=== PATIENT | male | born 1975 | race African-American/Black ===

== ENCOUNTER 2016-09-17 21:49 | Emergency (ER) | payer BC ==
[~2016-09-17] VITALS: Ht 190.5 cm; Wt 70.0 kg
[~2016-09-17 21:49] MED LIST: LAM25 PO; PHEN100C4 PO
[2016-09-17 22:12] VITALS: BP 121/68
[2016-09-17 22:49] LABS: BASOPHILS % 0.6 % (0.0-2.0); EOSINOPHILS % 1.6 % (0.0-5.0); HEMATOCRIT. 36.9 % (42.0-52.0); HEMOGLOBIN. 11.9 g/dL (14.0-18.0); LYMPHOCYTES % 28.9 % (20.0-50.0); MEAN CORPUSCULAR HEMOGLOBIN 29.9 pg (28.0-32.0); MEAN CORPUSCULAR HGB CONC 32.4 g/dL (31.0-37.0); MEAN CORPUSCULAR VOLUME 92.5 fL (80.0-94.0); MEAN PLATELET VOLUME 6.5 fl (7.4-10.4); MONOCYTES % 11.6 % (2.0-8.0); NEUTROPHILS % 57.3 % (40.0-76.0); PLATELET 326 x1000/uL (130-400); RED BLOOD CELL COUNT 3.99 mill/uL (4.7-6.1); RED CELL DISTRIBUTION WIDTH 13.9 % (11.6-14.6); WHITE BLOOD COUNT 6.6 x1000/uL (4.5-11.0)
[2016-09-17 22:55] LABS: CHLORIDE 107 mEq/L (98-107); INDEX HEMOLYSI 1 (1-3); INDEX ICTERIC 1 (1-4); INDEX LIPEMIC 1 (1-3)
[2016-09-17 22:58] LABS: ALBUMIN 3.2 g/dL (3.4-5.0); ANION GAP 14; CALCIUM 8.2 mg/dL (8.5-10.1); CARBON DIOXIDE 23 mEq/L (21-32); UREA NITROGEN BLOOD 12 mg/dL (7-21)
[2016-09-17 23:01] LABS: ALANINE AMINOTRANSFERASE 17 IU/L (13-61)
[2016-09-17 23:03] LABS: eGFR > 60 mL/min (>60)
[2016-09-17] MEDS ORDERED: PHENYTOIN SODIUM EXTENDED 100MG CAPSULE PO ONE (23:30)
[2016-09-17] MEDS ORDERED: DIVALPROEX SODIUM 250MG ER TABLET PO ONE (23:30)
== END 2016-09-18 00:31 | disposition home or self-care (01) ==
LOC: ER 22:18
DX: G40.909 Epilepsy, unspecified, not intractable, without status epilepticus (principal); S00.81XA Abrasion of other part of head, initial encounter; W07.XXXA Fall from chair, initial encounter; Y92.018 Other place in single-family (private) house as the place of occurrence of the external cause
CPT/HCPCS: 36415; 80053; 80165; 80185; 85025; 99284; Z7610

== ENCOUNTER → 2016-09-19 | Outpatient (CLI) | payer BC ==
[2016-09-19 10:36] LABS: PHENYTOIN 8.1 ug/mL (10-20); VALPROIC ACID 49.7 ug/mL (50-100)
== END | disposition home or self-care (01) ==
LOC: LAB 10:05
PROVIDERS: ATTEND Psychiatry & Neurology Neurology
DX: R56.9 Unspecified convulsions (principal)
CPT/HCPCS: 36415; 80165; 80185

== ENCOUNTER 2017-02-14 18:19 | Emergency (ER) | payer BC ==
[~2017-02-14] VITALS: Ht 180.3 cm; Wt 80.0 kg
[2017-02-14] MEDS ORDERED: LORAZEPAM 2MG/ML CPJ IV ONE (19:00)
[2017-02-14 19:09] LABS: BASOPHILS % 0.3 % (0.0-2.0); EOSINOPHILS % 1.2 % (0.0-5.0); HEMATOCRIT. 40.1 % (42.0-52.0); HEMOGLOBIN. 12.9 g/dL (14.0-18.0); LYMPHOCYTES % 39.7 % (20.0-50.0); MEAN CORPUSCULAR HEMOGLOBIN 30.3 pg (28.0-32.0); MEAN CORPUSCULAR VOLUME 93.8 fL (80.0-94.0); MONOCYTES % 11.8 % (2.0-8.0); PLATELET 329 x1000/uL (130-400); RED BLOOD CELL COUNT 4.27 mill/uL (4.7-6.1); RED CELL DISTRIBUTION WIDTH 14.2 % (11.6-14.6)
[2017-02-14 19:12] LABS: CHLORIDE 106 mEq/L (98-107); INR 1.1; PROTHROMBIN TIME 11.6 sec (9.4-11.6)
[2017-02-14 19:19] LABS: CARBON DIOXIDE 16 mEq/L (21-32)
[2017-02-14] MEDS ORDERED: VALPROATE SODIUM 500 MG in SODIUM CHLORIDE 0.9% 100 ML IV SCH (19:30)
[2017-02-14 21:30] VITALS: BP 113/86
== END 2017-02-14 21:38 | disposition home or self-care (01) ==
LOC: ER 18:19
DX: R56.9 Unspecified convulsions (principal)
CPT/HCPCS: 36415; 80053; 80165; 80185; 85025; 85610; 96365; 99284; J3490; Z7610; J7050

== ENCOUNTER → 2017-02-17 | Outpatient (CLI) | payer BC ==
[2017-02-17 15:52] LABS: CLARITY URINE CLEAR (CLEAR); COLOR URINE YELLOW (YELLOW); GLUCOSE URINE NEGATIVE (NEGATIVE); KETONES URINE NEGATIVE (NEGATIVE); LEUKOCYTE ESTERASE URINE NEGATIVE (NEGATIVE); NITRITE URINE NEGATIVE (NEGATIVE); OCCULT BLOOD URINE TRACE (NEGATIVE); PH URINE 6.5 (4.5-8.0); PROTEIN URINE NEGATIVE (NEGATIVE); UROBILINOGEN URINE 0.2 E.U./dL (0.2-1.0)
[2017-02-17 15:53] LABS: BASOPHILS % 0.9 % (0.0-2.0); EOSINOPHILS % 1.7 % (0.0-5.0); HEMOGLOBIN. 12.1 g/dL (14.0-18.0); LYMPHOCYTES % 42.7 % (20.0-50.0); MEAN CORPUSCULAR HEMOGLOBIN 29.8 pg (28.0-32.0); MEAN CORPUSCULAR VOLUME 91.2 fL (80.0-94.0); MEAN PLATELET VOLUME 7.1 fl (7.4-10.4); MONOCYTES % 12.5 % (2.0-8.0); NEUTROPHILS % 42.2 % (40.0-76.0); PLATELET 286 x1000/uL (130-400); RED BLOOD CELL COUNT 4.06 mill/uL (4.7-6.1); RED CELL DISTRIBUTION WIDTH 14.1 % (11.6-14.6)
[2017-02-17 16:38] LABS: CARBON DIOXIDE 29 mEq/L (21-32); CHLORIDE 105 mEq/L (98-107); HDL CHOLESTEROL 76 mg/dL (40-59); LDL CHOLESTEROL 70 mg/dL (5-100)
[2017-02-17 17:26] LABS: HEPATITIS B SURFACE ANTIGEN NEGATIVE
[2017-02-17 17:54] LABS: HEPATITIS B CORE AB IGM NEGATIVE
[2017-02-17 17:55] LABS: HEPATITIS A AB IGM NEGATIVE (NEGATIVE)
[2017-02-17 18:06] LABS: PROSTRATE SPECIFIC AG TOTAL 0.81 ng/mL (0.0-4.0)
== END | disposition home or self-care (01) ==
LOC: LAB 15:04
PROVIDERS: ATTEND Internal Medicine
DX: G40.909 Epilepsy, unspecified, not intractable, without status epilepticus (principal); R53.83 Other fatigue; R63.4 Abnormal weight loss
CPT/HCPCS: 36415; 80053; 80061; 81001; 83036; 84153; 84443; 85025; 85651; 86705; 86709; 86803; 87186; 87340

== ENCOUNTER → 2017-07-04 | Outpatient (CLI) | payer BC | END | disposition home or self-care (01) | LOC: LAB 07:10 | PROVIDERS: ATTEND Psychiatry & Neurology Neurology | DX: R56.9 Unspecified convulsions (principal) | CPT/HCPCS: 36415; 80165; 80185 ==

== ENCOUNTER 2017-08-24 10:04 | Emergency (ER) | payer BC ==
[~2017-08-24] VITALS: Ht 193 cm; Wt 68.0 kg
[2017-08-24 10:15] VITALS: BP 108/64
[2017-08-24] MEDS ORDERED: TETANUS, DIPHTHERIA, PERTUSSIS VAC/PF 0.5ML (>7YR OLD) IM ONE (10:30)
[2017-08-24] MEDS ORDERED: POVIDONE-IODINE 10% TOPICAL SOLN 240ML TOP ONE (10:30)
[2017-08-24] MEDS ORDERED: BACITRACIN ZINC OINT UDPKT TOP ONE (11:00)
== END 2017-08-24 11:17 | disposition home or self-care (01) ==
LOC: ER 10:19
DX: S61.451A Open bite of right hand, initial encounter (principal); G40.909 Epilepsy, unspecified, not intractable, without status epilepticus; W54.0XXA Bitten by dog, initial encounter; Y93.89 Activity, other specified; Y92.028 Other place in mobile home as the place of occurrence of the external cause
CPT/HCPCS: 12001; 90471; 90715; 99283; A4246

== ENCOUNTER 2018-06-29 17:31 | Emergency (ER) | payer BC, MEDICAID, OTHER ==
[~2018-06-29] VITALS: Ht 195.6 cm; Wt 90.0 kg
[2018-06-29 17:37] VITALS: BP 141/76
== END 2018-06-29 17:50 | disposition home or self-care (01) ==
LOC: ER 17:31
DX: G40.909 Epilepsy, unspecified, not intractable, without status epilepticus (principal)
CPT/HCPCS: 99283

== ENCOUNTER 2018-12-14 07:14 | Emergency (ER) | payer BC, OTHER ==
[~2018-12-14] VITALS: Ht 190.5 cm; Wt 68.0 kg
[2018-12-14 08:07] VITALS: BP 113/78
== END 2018-12-14 08:11 | disposition home or self-care (01) ==
LOC: ER 07:29
DX: M65.88 Other synovitis and tenosynovitis, other site (principal); G40.909 Epilepsy, unspecified, not intractable, without status epilepticus
CPT/HCPCS: 99282

== ENCOUNTER → 2019-06-09 | Outpatient (CLI) | payer BC, OTHER ==
[2019-06-09 08:48] LABS: BASOPHILS % 0.9 % (0.0-2.0); EOSINOPHILS % 6.4 % (0.0-5.0); HEMATOCRIT. 39.7 % (42.0-52.0); LYMPHOCYTES % 37.5 % (20.0-50.0); MEAN CORPUSCULAR HEMOGLOBIN 30.4 pg (28.0-32.0); MEAN CORPUSCULAR VOLUME 93.1 fL (80.0-94.0); MEAN PLATELET VOLUME 6.9 fl (7.4-10.4); MONOCYTES % 12.3 % (2.0-8.0); NEUTROPHILS % 42.9 % (40.0-76.0); PLATELET 328 x1000/uL (130-400); RED BLOOD CELL COUNT 4.26 mill/uL (4.7-6.1); RED CELL DISTRIBUTION WIDTH 14.1 % (11.6-14.6)
[2019-06-09 09:05] LABS: CHLORIDE 108 mEq/L (98-107)
== END | disposition home or self-care (01) ==
LOC: EDSTATUS 06:17 → LAB 07:20
PROVIDERS: ATTEND Psychiatry & Neurology Neurology
DX: G40.919 Epilepsy, unspecified, intractable, without status epilepticus (principal); Z79.899 Other long term (current) drug therapy
CPT/HCPCS: 36415; 80048; 80076; 80165; 80185; 82542

== ENCOUNTER 2019-07-19 10:27 | Emergency (ER) | payer BC ==
[~2019-07-19] VITALS: Ht 193 cm; Wt 70.0 kg
[2019-07-19 11:53] LABS: BASOPHILS % 0.5 % (0.0-2.0); EOSINOPHILS % 4.7 % (0.0-5.0); HEMATOCRIT. 39.4 % (42.0-52.0); LYMPHOCYTES % 37.9 % (20.0-50.0); MEAN CORPUSCULAR HEMOGLOBIN 30.6 pg (28.0-32.0); MEAN CORPUSCULAR VOLUME 92.6 fL (80.0-94.0); MEAN PLATELET VOLUME 6.6 fl (7.4-10.4); MONOCYTES % 12.4 % (2.0-8.0); NEUTROPHILS % 44.5 % (40.0-76.0); PLATELET 313 x1000/uL (130-400); RED BLOOD CELL COUNT 4.25 mill/uL (4.7-6.1); RED CELL DISTRIBUTION WIDTH 13.7 % (11.6-14.6)
[2019-07-19 12:07] LABS: CHLORIDE 107 mEq/L (98-107)
[2019-07-19] MEDS ORDERED: IOHEXOL-300 100 ML BOTTLE ONE (14:17)
[2019-07-19 14:40] VITALS: BP 124/69
== END 2019-07-19 14:42 | disposition home or self-care (01) ==
LOC: ER 10:27
DX: R22.1 Localized swelling, mass and lump, neck (principal); G40.909 Epilepsy, unspecified, not intractable, without status epilepticus
CPT/HCPCS: 36415; 70491; 80053; 85025; 87070; 87430; 99284; Q9967; Z7610

== ENCOUNTER → 2020-08-15 | Outpatient (CLI) | payer BC ==
[2020-08-15 17:35] LABS: BASOPHILS % 0.9 % (0.0-2.0); EOSINOPHILS % 5.6 % (0.0-5.0); HEMATOCRIT. 38.5 % (42.0-52.0); HEMOGLOBIN. 12.6 g/dL (14.0-18.0); LYMPHOCYTES % 41.9 % (20.0-50.0); MEAN CORPUSCULAR HEMOGLOBIN 29.8 pg (28.0-32.0); MEAN CORPUSCULAR VOLUME 91.4 fL (80.0-94.0); MEAN PLATELET VOLUME 6.9 fl (7.4-10.4); MONOCYTES % 11.5 % (2.0-8.0); NEUTROPHILS % 40.1 % (40.0-76.0); PLATELET 326 x1000/uL (130-400); RED BLOOD CELL COUNT 4.21 mill/uL (4.7-6.1); RED CELL DISTRIBUTION WIDTH 14.2 % (11.6-14.6)
[2020-08-15 17:46] LABS: CHLORIDE 108 mEq/L (98-107)
[2020-08-15 17:53] LABS: CREATINE KINASE 118 IU/L (39-308)
== END | disposition home or self-care (01) ==
LOC: LAB 17:04
PROVIDERS: ATTEND Psychiatry & Neurology Neurology
DX: G40.919 Epilepsy, unspecified, intractable, without status epilepticus (principal)
CPT/HCPCS: 36415; 80048; 80076; 80165; 80185; 82550; 85025

== ENCOUNTER 2020-09-27 16:50 | Emergency (ER) | payer BC ==
[~2020-09-27] VITALS: Ht 188 cm; Wt 82.0 kg
[2020-09-27] MEDS ORDERED: LORAZEPAM 2MG/ML CPJ ONE (17:15)
[2020-09-27] MEDS ORDERED: LORAZEPAM 2MG/ML CPJ IV ONE (17:15)
[2020-09-27 17:18] LABS: BASOPHILS % 1.1 % (0.0-2.0); EOSINOPHILS % 4.7 % (0.0-5.0); HEMATOCRIT. 40.1 % (42.0-52.0); HEMOGLOBIN. 12.6 g/dL (14.0-18.0); LYMPHOCYTES % 54.8 % (20.0-50.0); MEAN CORPUSCULAR HEMOGLOBIN 29.8 pg (28.0-32.0); MEAN CORPUSCULAR VOLUME 94.6 fL (80.0-94.0); MEAN PLATELET VOLUME 7.3 fl (7.4-10.4); MONOCYTES % 13.7 % (2.0-8.0); NEUTROPHILS % 25.7 % (40.0-76.0); PLATELET 364 x1000/uL (130-400); RED BLOOD CELL COUNT 4.23 mill/uL (4.7-6.1); RED CELL DISTRIBUTION WIDTH 14.5 % (11.6-14.6)
[2020-09-27 17:22] LABS: CHLORIDE 111 mEq/L (98-107)
[2020-09-27 17:26] LABS: ETHANOL BLOOD < 10 mg/dL
[2020-09-27 18:23] LABS: CLARITY URINE CLEAR (CLEAR); COLOR URINE YELLOW (YELLOW); KETONES URINE TRACE (NEGATIVE); LEUKOCYTE ESTERASE URINE NEGATIVE (NEGATIVE); NITRITE URINE NEGATIVE (NEGATIVE); OCCULT BLOOD URINE TRACE (NEGATIVE); PROTEIN URINE 1+ (NEGATIVE); SPECIFIC GRAVITY URINE 1.023 (1.005-1.030); UROBILINOGEN URINE 0.2 E.U./dL (0.2-1.0)
[2020-09-27 18:38] LABS: *AMPHETAMINES SCREEN URINE NEGATIVE (NEGATIVE); *BARBITURATES SCREEN URINE NEGATIVE (NEGATIVE); *BENZODIAZEPINES SCREEN URINE NEGATIVE (NEGATIVE); *COCAINE SCREEN URINE NEGATIVE (NEGATIVE)
[2020-09-27 18:39] LABS: CANNABINOID URINE SCREEN PRESUMTIVE POSITIVE (NEGATIVE); METHADONE URINE SCREEN NEGATIVE (NEGATIVE); OPIATES URINE SCREEN NEGATIVE (NEGATIVE); PHENCYCLIDINE URINE SCREEN NEGATIVE (NEGATIVE)
[2020-09-27 20:23] VITALS: BP 121/68
== END 2020-09-27 20:23 | disposition home or self-care (01) ==
LOC: ER 16:50
DX: G40.909 Epilepsy, unspecified, not intractable, without status epilepticus (principal); T42.0X5A Adverse effect of hydantoin derivatives, initial encounter; Y92.9 Unspecified place or not applicable
CPT/HCPCS: 36415; 80053; 80185; 80305; 80320; 81003; 82962; 85025; 96374; 99283; J2060; G0480

== ENCOUNTER → 2021-08-08 | Outpatient (CLI) | payer BC, MEDICAID ==
[2021-08-08 12:36] LABS: CLARITY URINE CLEAR (CLEAR); COLOR URINE YELLOW (YELLOW); KETONES URINE TRACE (NEGATIVE); LEUKOCYTE ESTERASE URINE NEGATIVE (NEGATIVE); NITRITE URINE NEGATIVE (NEGATIVE); OCCULT BLOOD URINE TRACE (NEGATIVE); PROTEIN URINE NEGATIVE (NEGATIVE); SPECIFIC GRAVITY URINE 1.022 (1.005-1.030); UROBILINOGEN URINE 0.2 E.U./dL (0.2-1.0)
[2021-08-08 12:37] LABS: BASOPHILS % 0.7 % (0.0-2.0); EOSINOPHILS % 6.2 % (0.0-5.0); HEMATOCRIT. 37.5 % (42.0-52.0); HEMOGLOBIN. 12.3 g/dL (14.0-18.0); LYMPHOCYTES % 30.1 % (20.0-50.0); MEAN CORPUSCULAR HEMOGLOBIN 28.9 pg (28.0-32.0); MEAN CORPUSCULAR VOLUME 87.9 fL (80.0-94.0); MEAN PLATELET VOLUME 7.2 fl (7.4-10.4); MONOCYTES % 13.4 % (2.0-8.0); NEUTROPHILS % 49.6 % (40.0-76.0); PLATELET 321 x1000/uL (130-400); RED BLOOD CELL COUNT 4.27 mill/uL (4.7-6.1); RED CELL DISTRIBUTION WIDTH 14.2 % (11.6-14.6)
[2021-08-08 12:44] LABS: CHLORIDE 107 mEq/L (98-107)
[2021-08-08 12:53] LABS: TOTAL IRON BINDING CAPACITY 358 ug/dL (250-450)
[2021-08-09 17:41] LABS: PROSTRATE SPECIFIC AG TOTAL 1.29 ng/mL (0.0-4.0)
== END | disposition home or self-care (01) ==
LOC: LAB 11:47
PROVIDERS: ATTEND Internal Medicine
DX: R53.83 Other fatigue (principal); G40.909 Epilepsy, unspecified, not intractable, without status epilepticus; R53.1 Weakness; E29.1 Testicular hypofunction; D64.9 Anemia, unspecified
CPT/HCPCS: 36415; 80053; 81003; 82728; 83036; 83540; 83550; 84153; 84403; 84443; 85025; 85651; G0103

== ENCOUNTER 2021-11-02 15:01 | Emergency (ER) | payer BC, OTHER ==
[~2021-11-02] VITALS: Ht 193 cm; Wt 73.0 kg
[2021-11-02] MEDS ORDERED: LORAZEPAM 2MG/ML CPJ IV ONE (15:15)
[2021-11-02] MEDS ORDERED: LEVETIRACETAM 1000MG PREMIX 100 ML IV ONE (15:15)
[2021-11-02] MEDS ORDERED: TETANUS, DIPHTHERIA, PERTUSSIS VAC/PF 0.5ML (>10YR OLD) IM ONE ×2 (15:30→17:30)
[2021-11-02 15:58] LABS: BASOPHILS % 0.4 % (0.0-2.0); EOSINOPHILS % 4.3 % (0.0-5.0); HEMATOCRIT. 42.7 % (42.0-52.0); HEMOGLOBIN. 13.6 g/dL (14.0-18.0); LYMPHOCYTES % 30.8 % (20.0-50.0); MEAN CORPUSCULAR VOLUME 90.8 fL (80.0-94.0); MEAN PLATELET VOLUME 7.5 fl (7.4-10.4); MONOCYTES % 11.5 % (2.0-8.0); PLATELET 372 x1000/uL (130-400); RED CELL DISTRIBUTION WIDTH 14.8 % (11.6-14.6)
[2021-11-02 16:12] LABS: CHLORIDE 107 mEq/L (98-107)
[2021-11-02 16:19] LABS: PHENOBARBITAL 2.2 ug/mL (15.0-40.0)
[2021-11-02 16:20] LABS: CARBAMAZEPINE < 0.5 ug/mL (4-12)
[2021-11-02] MEDS ORDERED: LIDOCAINE HCL/EPINEPHRINE 1%-EPI 1:100,000 20 ML VIAL INFIL ONE (16:30)
[2021-11-02] MEDS ORDERED: MORPHINE SULFATE 4 MG/ML CPJ (NOT FOR IM USE) IV ONE (16:30)
[2021-11-02] MEDS ORDERED: KETOROLAC 30MG/ML VIAL IV ONE (16:30)
[2021-11-02] MEDS ORDERED: DIVALPROEX SODIUM 250MG ER TABLET PO ONE (18:15)
[2021-11-02] MEDS ORDERED: LAMOTRIGINE 100MG TABLET PO SCH (18:15)
[2021-11-02] MEDS ORDERED: OXCARBAZEPINE 300MG TABLET PO SCH (18:45)
[2021-11-02 18:46] LABS: CLARITY URINE CLEAR (CLEAR); COLOR URINE YELLOW (YELLOW); KETONES URINE TRACE (NEGATIVE); LEUKOCYTE ESTERASE URINE NEGATIVE (NEGATIVE); NITRITE URINE NEGATIVE (NEGATIVE); OCCULT BLOOD URINE TRACE (NEGATIVE); PROTEIN URINE 1+ (NEGATIVE); SPECIFIC GRAVITY URINE 1.027 (1.005-1.030)
[2021-11-02] MEDS ORDERED: CEFP200T13 MT (19:22)
[2021-11-02] MEDS ORDERED: CEFTRIAXONE 1 G PREMIX 50 ML IV ONE (19:30)
[2021-11-02 20:20] VITALS: BP 114/72
== END 2021-11-02 20:26 | disposition home or self-care (01) ==
LOC: ER 15:01
DX: S01.112A Laceration without foreign body of left eyelid and periocular area, initial encounter (principal); R56.9 Unspecified convulsions; N39.0 Urinary tract infection, site not specified; X58.XXXA Exposure to other specified factors, initial encounter; Y93.89 Activity, other specified; Y92.89 Other specified places as the place of occurrence of the external cause; Y99.8 Other external cause status
CPT/HCPCS: 12014; 36415; 70450; 72125; 80053; 80156; 80165; 80184; 80185; 81003; 82542; 82962; 85025; 90471; 90715; 96365; 96367; 96375; 99285; J0696; J1885; J1953; J2060; J2270; J3490; Z7610

== ENCOUNTER → 2021-11-09 | Outpatient (CLI) | payer BC ==
[~2021-11-09] MED LIST changes: +CEFP200T13 MT
[2021-11-09 13:18] LABS: BASOPHILS % 0.6 % (0.0-2.0); EOSINOPHILS % 6.2 % (0.0-5.0); HEMATOCRIT. 39.8 % (42.0-52.0); HEMOGLOBIN. 12.9 g/dL (14.0-18.0); LYMPHOCYTES % 28.4 % (20.0-50.0); MEAN CORPUSCULAR HEMOGLOBIN 29.3 pg (28.0-32.0); MEAN CORPUSCULAR VOLUME 90.4 fL (80.0-94.0); MEAN PLATELET VOLUME 6.9 fl (7.4-10.4); MONOCYTES % 10.8 % (2.0-8.0); PLATELET 327 x1000/uL (130-400); RED CELL DISTRIBUTION WIDTH 15.2 % (11.6-14.6)
[2021-11-09 13:30] LABS: CHLORIDE 109 mEq/L (98-107)
[2021-11-09 14:19] LABS: CARBAMAZEPINE < 0.5 ug/mL (4-12)
== END | disposition home or self-care (01) ==
LOC: LAB 12:56
PROVIDERS: ATTEND Psychiatry & Neurology Neurology
DX: G40.919 Epilepsy, unspecified, intractable, without status epilepticus (principal)
CPT/HCPCS: 36415; 80048; 80076; 80156; 80165; 82542; 83735; 85025

== ENCOUNTER 2022-01-26 12:42 | Emergency (ER) | payer BC, MEDICAID ==
[~2022-01-26] VITALS: Ht 190.5 cm; Wt 73.0 kg
[2022-01-26] MEDS ORDERED: LAMOTRIGINE 25MG TABLET PO STA (14:19)
[2022-01-26] MEDS ORDERED: LAM25 MT (14:21)
[2022-01-26 15:22] VITALS: BP 126/86
== END 2022-01-26 15:23 | disposition home or self-care (01) ==
LOC: ER 12:42
DX: Z76.0 Encounter for issue of repeat prescription (principal)
CPT/HCPCS: 99281

== ENCOUNTER 2022-02-27 07:29 | Emergency (ER) | payer BC, MEDICAID, OTHER ==
[~2022-02-27] VITALS: Ht 190.5 cm; Wt 72.7 kg
[~2022-02-27 07:29] MED LIST changes: +LAM25 MT
[2022-02-27 07:58] VITALS: BP 115/80
[2022-02-27] MEDS ORDERED: ACET-2708 MT (08:38)
[2022-02-27] MEDS ORDERED: AMOX1TAB16 MT (08:38)
[2022-02-27] MEDS ORDERED: AMOXICILLIN/POTASSIUM CLAVULANATE 875/125MG TAB PO ONE (08:45)
[2022-02-27] MEDS ORDERED: ACETAMINOPHEN 325MG TABLET PO ONE (08:45)
== END 2022-02-27 08:47 | disposition home or self-care (01) ==
LOC: ER 07:29
DX: K11.6 Mucocele of salivary gland (principal); Z00.00 Encounter for general adult medical examination without abnormal findings; R56.9 Unspecified convulsions
CPT/HCPCS: 99283; Z7610; A4315

== ENCOUNTER 2023-05-09 22:42 | Emergency (ER) | payer BC, MEDICAID ==
[~2023-05-09] VITALS: Ht 193 cm; Wt 73.0 kg
[~2023-05-09 22:42] MED LIST changes: +ACET-2708 MT; +AMOX1TAB16 MT
[2023-05-09 23:10] VITALS: BP 127/68; PULSE 70; RESP 18; TEMP 98.1; O2SAT 100
[2023-05-09] MEDS ORDERED: IBUPROFEN 800MG TABLET PO ONE (23:30)
[2023-05-09] MEDS ORDERED: TETANUS, DIPHTHERIA, PERTUSSIS VAC/PF 0.5ML (>10YR OLD) IM ONE (23:30)
== END 2023-05-09 23:57 | disposition home or self-care (01) ==
LOC: ER 22:42
DX: S01.511A Laceration without foreign body of lip, initial encounter (principal); W18.30XA Fall on same level, unspecified, initial encounter; Y93.89 Activity, other specified; Y92.89 Other specified places as the place of occurrence of the external cause; Y99.8 Other external cause status
CPT/HCPCS: 90471; 90715; 99283

== ENCOUNTER 2023-07-02 07:35 | Emergency (ER) | payer BC, MEDICAID ==
[2023-07-02] MEDS ORDERED: IOHEXOL-350 100 ML BOTTLE ONE (08:40)
[2023-07-02 08:55] LABS: BASOPHILS % 0.6 % (0.0-2.0); EOSINOPHILS % 10.4 % (0.0-5.0); HEMATOCRIT. 38.2 % (42.0-52.0); HEMOGLOBIN. 12.8 g/dL (14.0-18.0); LYMPHOCYTES % 24.7 % (20.0-50.0); MEAN CORPUSCULAR HEMOGLOBIN 30.6 pg (28.0-32.0); MEAN CORPUSCULAR HGB CONC 33.4 g/dL (31.0-37.0); MEAN CORPUSCULAR VOLUME 91.5 fL (80.0-94.0); MEAN PLATELET VOLUME 7.2 fl (7.4-10.4); MONOCYTES % 11.8 % (2.0-8.0); NEUTROPHILS % 52.5 % (40.0-76.0); PLATELET 291 x1000/uL (130-400); RED BLOOD CELL COUNT 4.18 mill/uL (4.7-6.1); WHITE BLOOD COUNT 6.3 x1000/uL (4.5-11.0)
[2023-07-02 09:15] LABS: INR 1.1; PROTHROMBIN TIME 11.8 sec (9.6-11.0)
[2023-07-02] MEDS ORDERED: SODIUM CHLORIDE 0.9% 1,000 ML IV ONE (09:15)
[2023-07-02 09:26] LABS: ALANINE AMINOTRANSFERASE < 7 IU/L (10-49); ALBUMIN 3.9 g/dL (3.2-4.8); ASPARTATE AMINOTRANSFERASE 12 IU/L (<34); BILIRUBIN TOTAL 0.2 mg/dL (0.1-1.0); CALCIUM 8.7 mg/dL (8.7-10.4); CARBON DIOXIDE 29 mEq/L (21-32); CHLORIDE 107 mEq/L (98-107); CREATININE 0.8 mg/dL (0.6-1.3); ETHANOL BLOOD < 10 mg/dL (<10); GLUCOSE 86 mg/dL (70-105); POTASSIUM 3.9 mEq/L (3.5-5.1); PROTEIN TOTAL 6.8 g/dL (6.0-8.3); SODIUM 139 mEq/L (136-145); UREA NITROGEN BLOOD 9 mg/dL (9-23)
[2023-07-02] MEDS ORDERED: ASPIRIN 325MG EC TABLET PO ONE (09:45)
[2023-07-02 10:33] VITALS: BP 110/70; PULSE 64; RESP 15; TEMP 98.1
== END 2023-07-02 12:44 | disposition left against medical advice (07) ==
LOC: ER 08:09 → EDBEDREQ 10:02 → ER 12:44 → CANBEDREQ 07-04 05:37
DX: R27.0 Ataxia, unspecified (principal); R11.2 Nausea with vomiting, unspecified
CPT/HCPCS: 80053; 80320; 85025; 85610; 36415; 71045; 70496; 70498; 70450; 93005; 96360; 96361; 99291; Q9967; J7030; G0480

== ENCOUNTER → 2023-12-22 | Outpatient (CLI) | payer BC, MEDICAID ==
[2023-12-22 09:20] LABS: BASOPHILS % 0.7 % (0.0-2.0); EOSINOPHILS % 12.6 % (0.0-5.0); HEMATOCRIT. 39.9 % (42.0-52.0); HEMOGLOBIN. 12.7 g/dL (14.0-18.0); LYMPHOCYTES % 20.8 % (20.0-50.0); MEAN CORPUSCULAR HEMOGLOBIN 29.7 pg (28.0-32.0); MEAN CORPUSCULAR HGB CONC 31.8 g/dL (31.0-37.0); MEAN CORPUSCULAR VOLUME 93.4 fL (80.0-94.0); MEAN PLATELET VOLUME 7.3 fl (7.4-10.4); MONOCYTES % 11.1 % (2.0-8.0); NEUTROPHILS % 54.8 % (40.0-76.0); PLATELET 294 x1000/uL (130-400); RED BLOOD CELL COUNT 4.26 mill/uL (4.7-6.1); RED CELL DISTRIBUTION WIDTH 14.6 % (11.6-14.6); WHITE BLOOD COUNT 6.3 x1000/uL (4.5-11.0)
[2023-12-22 09:21] LABS: CLARITY URINE CLEAR (CLEAR); COLOR URINE YELLOW (YELLOW); GLUCOSE URINE NEGATIVE (NEGATIVE); KETONES URINE TRACE (NEGATIVE); LEUKOCYTE ESTERASE URINE 1+ (NEGATIVE); NITRITE URINE NEGATIVE (NEGATIVE); OCCULT BLOOD URINE 1+ (NEGATIVE); PROTEIN URINE TRACE (NEGATIVE); SPECIFIC GRAVITY URINE 1.022 (1.005-1.030)
[2023-12-22 09:31] LABS: BACTERIA URINE NONE SEEN; SQUAMOUS EPITHELIAL CELL URINE 1+ /lpf (RARE/1+); YEAST URINE NONE SEEN
[2023-12-22 09:43] LABS: CHLORIDE 106 mEq/L (98-107); SODIUM 138 mEq/L (136-145)
[2023-12-22 09:44] LABS: CALCIUM 9.4 mg/dL (8.7-10.4); CARBON DIOXIDE 26 mEq/L (21-32)
[2023-12-22 09:49] LABS: CREATININE 0.9 mg/dL (0.6-1.3); GLUCOSE 84 mg/dL (70-105); TRIGLYCERIDE 46 mg/dL (0-150); UREA NITROGEN BLOOD 6 mg/dL (9-23)
[2023-12-22 09:50] LABS: LDL CHOLESTEROL 57 mg/dL (5-100)
[2023-12-22 09:51] LABS: ALANINE AMINOTRANSFERASE < 7 IU/L (10-49); ALBUMIN 4.4 g/dL (3.2-4.8); ASPARTATE AMINOTRANSFERASE 11 IU/L (<34); BILIRUBIN TOTAL 0.4 mg/dL (0.1-1.0); CHOLESTEROL 142 mg/dL (<200); HDL CHOLESTEROL 70 mg/dL (>55); PROTEIN TOTAL 7.1 g/dL (6.0-8.3)
[2023-12-22 09:53] LABS: T4 FREE 0.86 ng/dL (0.89-1.76); THYROID STIMULATING HORMONE 1.26 uIU/mL (0.55-4.78)
[2023-12-23 08:08] LABS: PROSTATE SPECIFIC AG TOTAL 2.1 ng/mL (0.0-4.0); VITAMIN D 25-OH 5.9 ng/mL (30.0-100.0)
== END | disposition home or self-care (01) ==
LOC: LAB 08:09
PROVIDERS: ATTEND Internal Medicine Nephrology
DX: Z00.00 Encounter for general adult medical examination without abnormal findings (principal)
CPT/HCPCS: 36415; 80053; 80061; 81003; 82306; 82947; 83036; 83970; 84100; 84153; 84439; 84443; 85025; 86140

== ENCOUNTER 2024-10-30 10:11 | Emergency (ER) | payer BC, OTHER ==
[~2024-10-30] VITALS: Ht 188 cm; Wt 72.5 kg
[2024-10-30 10:15] VITALS: O2SAT 94
[2024-10-30] MEDS ORDERED: LORAZEPAM 2MG/ML INJ IV ONE (10:15)
[2024-10-30] MEDS ORDERED: LORAZEPAM 2MG/ML INJ IM ONE (10:30)
[2024-10-30] MEDS: LORAZEPAM 2MG/ML UD SYRINGE IM NR (10:35)
[2024-10-30 10:54] LABS: BASOPHILS % 0.7 % (0.0-2.0); DIFFERENTIAL COMMENT 0; EOSINOPHILS % 13.7 % (0.0-5.0); HEMATOCRIT. 45.3 % (42.0-52.0); HEMOGLOBIN. 13.9 g/dL (14.0-18.0); LYMPHOCYTES % 39.4 % (20.0-50.0); MEAN CORPUSCULAR HEMOGLOBIN 30.1 pg (28.0-32.0); MEAN CORPUSCULAR HGB CONC 30.7 g/dL (31.0-37.0); MEAN PLATELET VOLUME 7.9 fl (7.4-10.4); MONOCYTES % 10.4 % (2.0-8.0); NEUTROPHILS % 35.8 % (40.0-76.0); PLATELET 317 x1000/uL (130-400); RED BLOOD CELL COUNT 4.62 mill/uL (4.7-6.1); WHITE BLOOD COUNT 9.8 x1000/uL (4.5-11.0)
[2024-10-30 11:02] LABS: CHLORIDE 105 mEq/L (98-107); POTASSIUM 3.9 mEq/L (3.5-5.1); SODIUM 141 mEq/L (136-145)
[2024-10-30 11:03] LABS: CALCIUM 9.5 mg/dL (8.7-10.4); CARBON DIOXIDE 14 mEq/L (21-32)
[2024-10-30 11:08] LABS: CREATININE 1.1 mg/dL (0.6-1.3); GLUCOSE 109 mg/dL (70-105); UREA NITROGEN BLOOD 10 mg/dL (9-23)
[2024-10-30 11:09] LABS: ETHANOL BLOOD < 10 mg/dL (<10)
[2024-10-30 11:18] LABS: PHENYTOIN < 2.0 ug/mL (10-20)
[2024-10-30] MEDS ORDERED: LAMO100T65 PO (11:36)
[2024-10-30 12:00] VITALS: BP 119/54; PULSE 78; RESP 16; TEMP 36.7; O2SAT 99
[2024-10-30] MEDS: LAMOTRIGINE 100MG TABLET PO STA (12:27)
== END 2024-10-30 12:43 | disposition home or self-care (01) ==
LOC: ER 10:11
DX: R56.9 Unspecified convulsions (principal); Z79.899 Other long term (current) drug therapy
CPT/HCPCS: 80048; 80320; 80185; 82962; 85025; 36415; 96372; 99284; J2060; G0480

== ENCOUNTER → 2024-12-22 | Outpatient (CLI) | payer BC ==
[~2024-12-22] MED LIST changes: +LAMO100T65 PO; -PHEN100C4 PO
[2024-12-22 12:03] LABS: CLARITY URINE CLEAR (CLEAR); COLOR URINE YELLOW (YELLOW); GLUCOSE URINE NEGATIVE (NEGATIVE); KETONES URINE TRACE (NEGATIVE); LEUKOCYTE ESTERASE URINE 2+ (NEGATIVE); NITRITE URINE NEGATIVE (NEGATIVE); OCCULT BLOOD URINE TRACE (NEGATIVE); PH URINE 6.5 (4.5-8.0); PROTEIN URINE NEGATIVE (NEGATIVE)
[2024-12-22 12:04] LABS: BASOPHILS % 0.6 % (0.0-2.0); EOSINOPHILS % 14.5 % (0.0-5.0); HEMATOCRIT. 38.9 % (42.0-52.0); HEMOGLOBIN. 12.6 g/dL (14.0-18.0); LYMPHOCYTES % 30.7 % (20.0-50.0); MEAN CORPUSCULAR HEMOGLOBIN 29.9 pg (28.0-32.0); MEAN CORPUSCULAR HGB CONC 32.3 g/dL (31.0-37.0); MEAN CORPUSCULAR VOLUME 92.6 fL (80.0-94.0); MEAN PLATELET VOLUME 7.2 fl (7.4-10.4); MONOCYTES % 10.5 % (2.0-8.0); NEUTROPHILS % 43.7 % (40.0-76.0); PLATELET 272 x1000/uL (130-400); RED CELL DISTRIBUTION WIDTH 14.3 % (11.6-14.6); WHITE BLOOD COUNT 6.3 x1000/uL (4.5-11.0)
[2024-12-22 12:13] LABS: CHLORIDE 108 mEq/L (98-107); POTASSIUM 4.7 mEq/L (3.5-5.1); SODIUM 145 mEq/L (136-145)
[2024-12-22 12:14] LABS: CALCIUM 9.3 mg/dL (8.7-10.4); CARBON DIOXIDE 30 mEq/L (21-32)
[2024-12-22 12:19] LABS: GLUCOSE 78 mg/dL (70-105); TRIGLYCERIDE 44 mg/dL (0-150); UREA NITROGEN BLOOD 10 mg/dL (9-23)
[2024-12-22 12:20] LABS: LDL CHOLESTEROL 58 mg/dL (5-100)
[2024-12-22 12:21] LABS: CHOLESTEROL 135 mg/dL (<200); HDL CHOLESTEROL 64 mg/dL (>55)
[2024-12-22 12:37] LABS: WBC URINE 0-2 /hpf (0-2)
[2024-12-22 12:38] LABS: SQUAMOUS EPITHELIAL CELL URINE FEW /lpf (RARE/1+)
[2024-12-22 12:39] LABS: BACTERIA URINE TRACE; YEAST URINE NONE SEEN
[2024-12-22 12:40] LABS: MUCUS URINE 1+ /lpf (NONE/TRACE)
== END | disposition home or self-care (01) ==
LOC: LAB 11:19
PROVIDERS: ATTEND Internal Medicine Nephrology
DX: R56.9 Unspecified convulsions (principal)
CPT/HCPCS: 36415; 80048; 80061; 81001; 81003; 82306; 83036; 83735; 85025

== ENCOUNTER 2025-05-03 12:27 | Emergency (ER) | payer BC ==
[~2025-05-03] VITALS: Ht 190.5 cm; Wt 90.0 kg
[2025-05-03 12:47] VITALS: O2SAT 99
[2025-05-03 13:25] VITALS: BP 125/63; PULSE 71; RESP 18; TEMP 37; O2SAT 98
[2025-05-03] MEDS: LAMOTRIGINE 100MG TABLET PO SCH (13:44)
== END 2025-05-03 13:46 | disposition left against medical advice (07) ==
LOC: ER 12:36
DX: G40.901 Epilepsy, unspecified, not intractable, with status epilepticus (principal); Z79.899 Other long term (current) drug therapy
CPT/HCPCS: 99283